=== PATIENT | female | born 1990 | race Caucasian/White ===

== ENCOUNTER → 2021-10-10 14:04 | Outpatient (BNVA) | payer BC, SELFPAY | PROVIDERS: Visit Provider Nurse Practitioner Family | DX: Z20.822 Contact with and (suspected) exposure to COVID-19 (principal); R06.02 Shortness of breath; F17.211 Nicotine dependence, cigarettes, in remission | CPT/HCPCS: 71046; 80053; 83880; 85025; 87635 ==

== ENCOUNTER → 2022-07-16 16:48 | Outpatient (BNVA) | payer BC, SELFPAY | PROVIDERS: Visit Provider Nurse Practitioner Family | DX: J40 Bronchitis, not specified as acute or chronic (principal); J32.0 Chronic maxillary sinusitis | CPT/HCPCS: 80053 ==

== ENCOUNTER 2022-09-05 14:52 | Outpatient (CLI) | payer BC, SELFPAY ==
[2022-09-05 15:35] LABS: ABG PCO2 41.3 mmHg (35-45); ABG PH Result 7.43 (7.35-7.45); Alveolar-Arterial Oxygen Gradi 4.2 mmHg (5-10); Arterial Blood Gas Hematocrit 40.6 % (37-47); Base Excess ABG 2.7 mmol/L (-2.0-2.0); Blood Gas Allen Test Pos; Blood Gas Operator Identificat GD; Blood Gas Sample Site Radial, right; Blood Gas Sample Type Arterial; Carboxyhemoglobin 4.9 %THgb (0.4-20.1); HCO3 ABG 27.3 mmol/L (22-26); HGB O2 Sat 89.6 % (95-100); Ionized Calcium Level - ABG 1.2 mmol/L (1.1-1.4); Methemoglobin 0.1 % (0.4-1.5); Oxygen Device ROOM AIR; Oxygen Saturation ABG 94.4; PO2 ABG 67.5 mmHg (80.0-100.0); Potassium Level - ABG 3.7 mmol/L (3.5-5.0); Total Hemoglobin 13.2 g/dL (12-16)
== END 2022-09-05 14:53 | disposition home or self-care (01) ==
LOC: LAB 14:55 → RT 14:55
PROVIDERS: PCP Nurse Practitioner Family; Visit Provider Nurse Practitioner Family
DX: E66.2 Morbid (severe) obesity with alveolar hypoventilation (principal); Z68.44 Body mass index [BMI] 60.0-69.9, adult
CPT/HCPCS: 36600; 80051; 82330; 82805

== ENCOUNTER → 2022-11-07 09:30 | Outpatient (BNVA) | payer BC, SELFPAY | PROVIDERS: PCP Nurse Practitioner Family; Visit Provider Nurse Practitioner Family | DX: J40 Bronchitis, not specified as acute or chronic (principal); R05.3 Chronic cough | CPT/HCPCS: 71046; 80053; 80061 ==

== ENCOUNTER → 2023-01-08 16:25 | Outpatient (BNVA) | payer BC, SELFPAY | PROVIDERS: PCP Nurse Practitioner Family; Visit Provider Nurse Practitioner Family | DX: J18.9 Pneumonia, unspecified organism (principal); R09.02 Hypoxemia | CPT/HCPCS: 71046 ==

== ENCOUNTER → 2023-03-19 11:22 | Outpatient (BNVA) | payer BC, SELFPAY | PROVIDERS: PCP Nurse Practitioner Family; Visit Provider Nurse Practitioner Family | DX: R60.9 Edema, unspecified (principal); L03.90 Cellulitis, unspecified; E66.01 Morbid (severe) obesity due to excess calories; Z68.44 Body mass index [BMI] 60.0-69.9, adult; Z13.220 Encounter for screening for lipoid disorders | CPT/HCPCS: 80053; 80061 ==

== ENCOUNTER → 2023-07-15 11:42 | Outpatient (BNVA) | payer BC, SELFPAY | PROVIDERS: PCP Nurse Practitioner Family; Visit Provider Nurse Practitioner Family | DX: L03.90 Cellulitis, unspecified (principal) | CPT/HCPCS: 80053 ==

== ENCOUNTER → 2023-08-11 11:35 | Outpatient (BNVA) | payer BC, SELFPAY | PROVIDERS: PCP Nurse Practitioner Family; Visit Provider Nurse Practitioner Family | DX: L03.90 Cellulitis, unspecified (principal); G47.00 Insomnia, unspecified; K59.00 Constipation, unspecified; R60.9 Edema, unspecified; D72.829 Elevated white blood cell count, unspecified | CPT/HCPCS: 80053 ==

== ENCOUNTER → 2023-12-29 11:49 | Outpatient (BNVA) | payer BC, SELFPAY | PROVIDERS: PCP Nurse Practitioner Family; Visit Provider Nurse Practitioner Family | DX: L03.90 Cellulitis, unspecified (principal); R74.8 Abnormal levels of other serum enzymes; F32.4 Major depressive disorder, single episode, in partial remission | CPT/HCPCS: 80053; 80061; 85025 ==

== ENCOUNTER → 2024-04-20 13:19 | Outpatient (BNVA) | payer BC, SELFPAY | PROVIDERS: PCP Nurse Practitioner Family; Visit Provider Nurse Practitioner Family | DX: F32.4 Major depressive disorder, single episode, in partial remission (principal); E28.2 Polycystic ovarian syndrome; E66.01 Morbid (severe) obesity due to excess calories; Z68.44 Body mass index [BMI] 60.0-69.9, adult; K21.9 Gastro-esophageal reflux disease without esophagitis; F51.01 Primary insomnia; L03.119 Cellulitis of unspecified part of limb; R60.9 Edema, unspecified | CPT/HCPCS: 80053; 85025 ==

== ENCOUNTER → 2024-07-06 10:58 | Outpatient (BNVA) | payer BC, SELFPAY | PROVIDERS: PCP Nurse Practitioner Family; Visit Provider Nurse Practitioner Family | DX: N91.1 Secondary amenorrhea (principal); E28.2 Polycystic ovarian syndrome | CPT/HCPCS: 80053; 81025; 82670; 83001; 83002; 83036; 84144; 84146; 84403; 84439; 84443; 85025 ==